=== PATIENT | male | born 1960 | race Caucasian/White ===

== ENCOUNTER 2017-05-05 13:07 | Emergency (ER) | payer OTHER ==
[2017-05-05 13:14] VITALS: BMI 31.8
[2017-05-05 13:15] VITALS: BP 113/73; PULSE 80; RESP 18; TEMP 98; O2SAT 100
--- NOTE | 2017-05-05 13:39 | C.PDOC ---
History Of Present Illness 56 year old male presents to the ER complaining of bilateral foot pain which has been present for 1 year. Patient states that he feels pain mainly in the balls of his feet and he feels that his foot pads are not supporting his feet. 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 He reports that the finger is stiff. Time Seen by Provider: 05/05/17 13:26 Chief Complaint (Nursing): Lower Extremity Problem/Injury History Per: Patient History/Exam Limitations: no limitations Onset/Duration Of Symptoms: Days Current Symptoms Are (Timing): Still Present Past Medical History Reviewed: Historical Data, Nursing Documentation, Vital Signs Vital Signs: Last Vital Signs Temp 98.0 F 05/05/17 13:14 Pulse 80 05/05/17 13:14 Resp 18 05/05/17 13:14 BP 113/73 05/05/17 13:14 Pulse Ox 100 05/05/17 16:07 - Medical History PMH: No Chronic Diseases Surgical History: No Surg Hx Family History: States: No Known Family Hx - Social History Hx Tobacco Use: No Hx Alcohol Use: Yes Hx Substance Use: No - Immunization History Hx Tetanus Toxoid Vaccination: No Hx Influenza Vaccination: No Hx Pneumococcal Vaccination: No Review Of Systems Except As Marked, All Systems Reviewed And Found Negative. Musculoskeletal: Positive for: Hand Pain (pain in right 3rd digit), Foot Pain ( bilateral foot pain) Neurological: Negative for: Weakness, Numbness Physical Exam - Physical Exam Appears: Non-toxic, No Acute Distress Skin: Normal Color, Warm Head: Atraumatic, Normacephalic Eye(s): bilateral: Normal Inspection, EOMI Nose: Normal Oral Mucosa: Moist Neck: Supple Chest: Symmetrical Extremity: Normal ROM, Tenderness (mild tenderness to the right 3rd digit non focal, pain with flexion of digit), Capillary Refill (<2 seconds), No Deformity (right 3rd digit), No Swelling, Other (feet: low arches, hammer toe of left 2nd toe, some calluses on plantar surface of bilateral feet, no ulcers) Pulses: Left Dorsalis Pedis: Normal, Right Dorsalis Pedis: Normal Neurological/Psych: Oriented x3, Normal Speech, Normal Motor, Normal Sensation Gait: Steady ED Course And Treatment O2 Sat by Pulse Oximetry: 100 (RA) Pulse Ox Interpretation: Normal Medical Decision Making Medical Decision Making: Impression: Bilateral Foot Pain, no injury. No concern for fracture or need for xray. Finger pain, no trauma. Plan: Patient given Motrin for pain and advised to wear orthototics and supportive shoes. Patient discharged and advised to follow up with podiatry. Disposition Counseled Patient/Family Regarding: Diagnosis, Need For Followup, Rx Given - Disposition Referrals: [facility] [Outside] Podiatry Clinic [Outside] Disposition: HOME/ ROUTINE Disposition Time: 13:36 Condition: GOOD Additional Instructions: Your prescription was sent to [facility] for Motrin 600mg Take medication for any pain and inflammation every 6-8 hours as needed, and with food to not upset stomach Please follow up with podiatry clinic for further evaluation of foot pain/ problem Prescriptions: Ibuprofen [Motrin] 600 mg PO Q8 #30 tab Instructions: Foot Sprain (ED), Tendinitis (ED) Forms: [employer] (Divehi) - POA Present On Arrival: None - Clinical Impression Clinical Impression: Foot pain, bilateral, Finger pain, Hammer toe of left foot - 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 - Scribe Statement The provider has reviewed the documentation as recorded by the Mark Duncan Provider Attestation All medical record entries made by the Mark were at my direction and personally dictated by me. I have reviewed the chart and agree that the record accurately reflects my personal performance of the history, physical exam, medical decision making, and the department course for this patient. I have also personally directed, reviewed, and agree with the discharge instructions and disposition.
== END 2017-05-05 13:56 | disposition home or self-care (01) ==
LOC: C.ER 13:07
DX: M79.672 Pain in left foot (principal); M79.671 Pain in right foot; M79.644 Pain in right finger(s); M20.42 Other hammer toe(s) (acquired), left foot

== ENCOUNTER 2017-11-27 15:46 | Emergency (ER) | payer OTHER ==
[2017-11-27 15:47] VITALS: BMI 31.8
[2017-11-27 15:56] VITALS: RESP 18; O2SAT 100
[2017-11-27] MEDS ORDERED: Sodium Chloride 0.9% 1,000 ML IV ONE (16:07)
--- NOTE | 2017-11-27 16:20 | C.PDOC ---
History Of Present Illness 57 y/o male presents to the ER complaining of RLQ that has been intermittent for about a week. Pain radiates to the right testicle. Its worse the last few hours prompting ER visit. Aggravated positional changes. The patient denies any fever, dysuria, nausea, vomiting, diarrhea, decreased PO intake, or history of kidney stones. 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 Time Seen by Provider: 11/27/17 15:58 Chief Complaint (Nursing): Abdominal Pain History Per: Patient Onset/Duration Of Symptoms: Days Current Symptoms Are (Timing): Still Present Location Of Pain/Discomfort: RLQ Radiation Of Pain To:: Other (testicles) Quality Of Discomfort: Other ("tight") Associated Symptoms: denies: Nausea, Vomiting, Diarrhea Exacerbating Factors: Other (sitting for extended period of time) Last Bowel Movement: Today Recent travel outside of the [place]: No Past Medical History Reviewed: Historical Data, Nursing Documentation, Vital Signs Vital Signs: Last Vital Signs Temp 98.5 F 11/27/17 19:01 Pulse 70 11/27/17 19:01 Resp 18 11/27/17 19:01 BP 101/65 11/27/17 19:01 Pulse Ox 100 11/27/17 19:02 - Medical History PMH: No Chronic Diseases Surgical History: No Surg Hx Family History: States: Unknown Family Hx - Social History Hx Tobacco Use: No Hx Alcohol Use: Yes Hx Substance Use: No - Immunization History Hx Tetanus Toxoid Vaccination: No Hx Influenza Vaccination: No Hx Pneumococcal Vaccination: No Review Of Systems Except As Marked, All Systems Reviewed And Found Negative. Constitutional: Negative for: Fever Gastrointestinal: Positive for: Abdominal Pain (RLQ pain). Negative for: Nausea , Vomiting, Diarrhea Genitourinary: Positive for: Other (radiating pain to testicular area). Negative for: Dysuria Physical Exam - Physical Exam Appears: Well, Non-toxic, No Acute Distress Skin: Normal Color, Warm, Dry Head: Atraumatic, Normacephalic Eye(s): bilateral: Normal Inspection, EOMI Nose: Normal Oral Mucosa: Moist Neck: Normal ROM, Supple Chest: Symmetrical Cardiovascular: Rhythm Regular Respiratory: Normal Breath Sounds, No Rales, No Rhonchi, No Wheezing Gastrointestinal/Abdominal: Soft, Tenderness (to RLQ), No Distention Back: No CVA Tenderness, No Vertebral Tenderness Male Genital: Testicular Tenderness (mild tenderness to the right testicle. No left testicle palpated. (Pt notes he has never had a L testicle since , never evaluated)), No Testicular Swelling, Inguinal Tenderness (R) Extremity: Bilateral: Atraumatic, Normal Color And Temperature, Normal ROM Neurological/Psych: Oriented x3, Normal Speech, Other (no focal deficits) ED Course And Treatment - Laboratory Results Result Diagrams: 11/27/17 17:07 11/27/17 17:07 O2 Sat by Pulse Oximetry: 100 (RA) Pulse Ox Interpretation: Normal Progress Note: Ordered CMP, Lipase stat, CBC, UA and testicular US. Patient was given Toradol 30 mg IV and IV fluids. On re-evaluation , pain improves. Pt is hungry. Tolerating po. Afebrile. Copy of work up given and instructed f/u with PMD in 1-2 days. Case discussed with Dr Wells, agreed upon plan and discharge. Disposition - Disposition Referrals: Santana Burns [Staff Provider] - Juan Luis Valencia MD [Staff Provider] - Disposition: HOME/ ROUTINE Disposition Time: 19:00 Condition: STABLE Additional Instructions: Follow up with your doctor in 1-2 days. Return to ER if symptoms persist or worsen. Prescriptions: Ciprofloxacin HCl [Cipro] 500 mg PO BID #14 tab Metronidazole [Flagyl] 500 mg PO BID #14 tab Instructions: Diverticulitis (DC) Forms: [employer] (Croatian) - Clinical Impression Clinical Impression: Diverticulitis - PA / DIRECTOR INDEX / Resident 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 - Scribe Statement The provider has reviewed the documentation as recorded by the Scribe (Omayra Ivan) All medical record entries made by the Scribe were at my direction and personally dictated by me. I have reviewed the chart and agree that the record accurately reflects my personal performance of the history, physical exam, medical decision making, and the department course for this patient. I have also personally directed, reviewed, and agree with the discharge instructions and disposition.
[2017-11-27 16:59] LABS: SQUAMOUS EPITHIAL 3 /hpf (0-5); URINE BACTERIA FEW (<OCC); URINE BILIRUBIN NEGATIVE (NEGATIVE); URINE BLOOD NEGATIVE (NEGATIVE); URINE CLARITY Hazy (Clear); URINE COLOR Yellow (YELLOW); URINE GLUCOSE (UA) 2+ mg/dL (Normal); URINE LEUKOCYTE ESTERASE 3+ Leu/uL (Negative); URINE PROTEIN NEGATIVE (NEGATIVE)
[2017-11-27] MEDS ORDERED: Sodium Chloride 0.9% 1,000 ML ONE (17:13)
[2017-11-27 17:15] LABS: BASO # 0.1 K/uL (0.0-0.2); EOS # 0.1 K/uL (0.0-0.7); EOS % 1.5 % (0.0-4.0); HEMOGLOBIN 15.1 g/dL (12.0-18.0); LYMPH # 3.2 K/uL (1.0-4.3); LYMPH % 35.7 % (20.0-40.0); MEAN CELL VOLUME 85.6 fL (80.0-94.0); MEAN CORPUSCULAR HEMOGLOBIN 30.1 pg (27.0-31.0); MEAN CORPUSCULAR HGB CONC 35.2 g/dL (33.0-37.0); MEAN PLATELET VOLUME 8.5 fL (7.2-11.7); MONO # 0.6 K/uL (0.0-0.8); MONO % 6.5 % (0.0-10.0); NEUT % 55.3 % (50.0-75.0); NRBC % 0.1 % (0.0-2.0); RBC 5.02 Mil/uL (4.40-5.90); RED CELL DISTRIBUTION WIDTH 13.1 % (11.5-14.5); WHITE BLOOD COUNT 9.1 K/uL (4.8-10.8)
[2017-11-27 17:43] LABS: ALB/GLOB RATIO 1.5 (1.0-2.1); ALT/SGPT 29 U/L (21-72); AST/SGOT 19 U/L (17-59); BLOOD UREA NITROGEN 16 mg/dL (9-20); CALCIUM 9.3 mg/dl (8.6-10.4); GFR AFRICAN-AMERICAN > 60; GFR NON-AFRICAN AMERICAN > 60; LIPASE 145 U/L (23-300)
[2017-11-27] MEDS ORDERED: Iohexol 300 100 ML IJ ONE (18:16)
--- NOTE | 2017-11-27 18:40 | US ---
Date of service: 11/27/2017 HISTORY: scrotal pain TECHNIQUE: Realtime sonography through the scrotum with color and doppler flow. COMPARISON: None Available. FINDINGS: RIGHT TESTICLE: Measures 4.4 x 2.3 x 4 cm. Normal echotexture and flow. RIGHT EPIDIDYMIS: Epididymal head measures 1.2 x 0.8 x 1 cm. There is a small cyst seen at the epididymal head measures 0.4 x 0.3 x 0.4 centimeter, otherwise unremarkable appearance with normal flow. LEFT TESTICLE: The left testicle was not visualized in the scrotum. There is a small soft tissue structure in the left groin may represent atrophic undescended left testicle LEFT EPIDIDYMIS: Was not visualized. HYDROCELE: None. VARICOCELE: None. OTHER FINDINGS: None. IMPRESSION: No evidence of right testicular torsion. Small right epididymal head cyst. The left testicle is not seen in the scrotum.
--- NOTE | 2017-11-27 18:57 | CT ---
Date of service: 11/27/2017 PROCEDURE: CT Abdomen and Pelvis with contrast HISTORY: RLQ COMPARISON: None. TECHNIQUE: Contrast dose: 100 mL of Omnipaque 300. Axial and reformatted coronal and sagittal CT images of the abdomen and pelvis were obtained after IV contrast administration. Radiation dose: Total exam DLP = 758.77 mGy-cm. This CT exam was performed using one or more of the following dose reduction techniques: Automated exposure control, adjustment of the mA and/or kV according to patient size, and/or use of iterative reconstruction technique. FINDINGS: LOWER THORAX: No evidence of acute pathology. LIVER: Unremarkable. No gross lesion or ductal dilatation. GALLBLADDER AND BILE DUCTS: Unremarkable. PANCREAS: Unremarkable. No gross lesion or ductal dilatation. SPLEEN: Unremarkable. ADRENALS: Unremarkable. No mass. KIDNEYS AND URETERS: There is 1.7 centimeters cyst seen at the upper pole of the left kidney. No hydronephrosis. No solid mass. VASCULATURE: Unremarkable. No aortic aneurysm. BOWEL: The stomach is mildly distended demonstrate mild wall thickening. Descending and sigmoid colon diverticulosis are noted. Mild fat stranding surrounding the sigmoid colon. The possibility of acute diverticulitis should be considered. . No obstruction. No gross mural thickening. APPENDIX: Normal appendix. PERITONEUM: Unremarkable. No free fluid. No free air. LYMPH NODES: Unremarkable. No enlarged lymph nodes. BLADDER: Unremarkable. REPRODUCTIVE: Heterogeneous prostate contains large calcification. BONES: No acute fracture. OTHER FINDINGS: None. IMPRESSION: Colonic diverticulosis. Suspicious for mild diverticulitis at the sigmoid colon. Please correlate clinically. No evidence of appendicitis. Mildly distended stomach demonstrate mild diffuse wall thickening suspicious for gastritis.
[2017-11-27 19:03] VITALS: BP 101/65; PULSE 70; TEMP 98.5
== END 2017-11-27 19:20 | disposition home or self-care (01) ==
LOC: C.ER 15:46
DX: K57.32 Diverticulitis of large intestine without perforation or abscess without bleeding (principal)
CPT/HCPCS: 74177; 76870; 80053; 81001; 83690; 85025; 96361; 96374; 99285; J1885; J7030; Q9967

== ENCOUNTER 2018-01-07 20:30 | Emergency (ER) | payer SELFPAY ==
[2018-01-07 20:30] VITALS: BMI 31.8
[2018-01-07 21:01] VITALS: TEMP 98.2
--- NOTE | 2018-01-07 21:23 | C.PDOC ---
History Of Present Illness 57 y/o male, with Hx of recent diverticulitis, presents to ED for evaluation of RLQ abdominal pain described as pressure since yesterday. Pt states pain feels similar to last time when he was diagnosed with diverticulitis. Last BM was today, normal. Denies fall, trauma, n/v/d, constipation, blood in stool, back pain, fever, urinary symptoms, chest pain, or shortness of breath. Time Seen by Provider: 01/07/18 21:23 Chief Complaint (Nursing): Abdominal Pain History Per: Patient History/Exam Limitations: no limitations Onset/Duration Of Symptoms: Days Current Symptoms Are (Timing): Still Present Location Of Pain/Discomfort: RLQ Radiation Of Pain To:: None Quality Of Discomfort: Pressure Exacerbating Factors: None Alleviating Factors: None Last Bowel Movement: Today Recent travel outside of the [place]: No Additional History Per: Patient Past Medical History Reviewed: Historical Data, Nursing Documentation, Vital Signs Vital Signs: Last Vital Signs Temp 98.2 F 01/07/18 20:58 Pulse 68 01/08/18 00:36 Resp 16 01/08/18 01:07 BP 115/72 01/08/18 00:36 Pulse Ox 98 01/08/18 00:57 - Medical History PMH: Diverticulitis Family History: States: Unknown Family Hx - Social History Hx Tobacco Use: No Hx Alcohol Use: Yes Hx Substance Use: No - Immunization History Hx Tetanus Toxoid Vaccination: No Hx Influenza Vaccination: No Hx Pneumococcal Vaccination: No Review Of Systems Except As Marked, All Systems Reviewed And Found Negative. Constitutional: Negative for: Fever, Chills Cardiovascular: Negative for: Chest Pain Respiratory: Negative for: Shortness of Breath Gastrointestinal: Positive for: Abdominal Pain. Negative for: Nausea, Vomiting , Diarrhea, Constipation, Melena, Hematochezia Genitourinary: Negative for: Dysuria, Frequency, Hematuria, Penile Discharge Musculoskeletal: Negative for: Back Pain Physical Exam - Physical Exam Appears: Non-toxic, No Acute Distress Skin: Normal Color, Warm, Dry Head: Atraumatic, Normacephalic Eye(s): bilateral: Normal Inspection Oral Mucosa: Moist Neck: Normal ROM, Supple Chest: Symmetrical Cardiovascular: Rhythm Regular, No Murmur Respiratory: Normal Breath Sounds, No Rales, No Rhonchi, No Wheezing Gastrointestinal/Abdominal: Soft, Tenderness (RLQ), No Guarding, No Rebound Back: No CVA Tenderness Extremity: Normal ROM Neurological/Psych: Oriented x3, Normal Speech ED Course And Treatment - Laboratory Results Result Diagrams: 01/07/18 21:49 01/07/18 21:49 O2 Sat by Pulse Oximetry: 98 Medical Decision Making Medical Decision Makin yr old male p/w recurrent RLQ pain. Given RLQ pain will seek CT to rule out appdx. Likely recurrent diverticulitis. Plan: Blood work Urinalysis Abd & Pelvis CT 1249 UA w/ UTI: Pt denies any penile d/c or hx of STDs. No testicular pain or deep set abdominal pain. No pain w. defecation or difficuly urinating. Will order UC and have pt f/u w/ uro pain improved, pt resting comfortable in NAD IMPRESSION: Moderate diverticulosis. Thickwalled sigmoid colon without significant inflammatory stranding. Differential diagnosis includes nondistention, chronic inflammation and mild colitis. Clinical correlation recommended. Thank you for allowing us to participate in the care of your patient. Dictated and Authenticated by: Radha Hameed MD 01/08/2018 12:38 AM Eastern Time ([place] & [place]) REcurrent diverticulitis will write rx script and have pt follow up w/ gastro Cipro to cover UTI as well. Disposition - Disposition Referrals: Koby Lozano MD [Medical Doctor] - Tyson Azevedo Jr., MD [Staff Provider] - Disposition: HOME/ ROUTINE Disposition Time: 00:49 Condition: GOOD Prescriptions: Ciprofloxacin [Cipro] 500 mg PO BID 14 Days #28 tab Metronidazole [Flagyl] 500 mg PO TID 14 Days #42 tablet Instructions: Urinary Tract Infections in Adults, Diverticulitis (DC) Forms: [employer] (Tuvaluan) - Clinical Impression Clinical Impression: Diverticulitis - Scribe Statement The provider has reviewed the documentation as recorded by the Scribe KP All medical record entries made by the Scribe were at my direction and personally dictated by me. I have reviewed the chart and agree that the record accurately reflects my personal performance of the history, physical exam, medical decision making, and the department course for this patient. I have also personally directed, reviewed, and agree with the discharge instructions and disposition.
[2018-01-07] MEDS ORDERED: Sodium Chloride 0.9% 1,000 ML IV SCH (21:45)
[2018-01-07 21:54] LABS: BASO # 0.1 K/uL (0.0-0.2); BASO % 0.7 % (0.0-2.0); EOS # 0.1 K/uL (0.0-0.7); EOS % 1.7 % (0.0-4.0); HEMOGLOBIN 15.3 g/dL (12.0-18.0); LYMPH % 34.9 % (20.0-40.0); MEAN CELL VOLUME 85.3 fL (80.0-94.0); MEAN CORPUSCULAR HEMOGLOBIN 29.9 pg (27.0-31.0); MEAN PLATELET VOLUME 8.6 fL (7.2-11.7); MONO # 0.6 K/uL (0.0-0.8); MONO % 7.2 % (0.0-10.0); NEUT # 4.8 K/uL (1.8-7.0); NEUT % 55.5 % (50.0-75.0); RBC 5.12 Mil/uL (4.40-5.90); RED CELL DISTRIBUTION WIDTH 13.2 % (11.5-14.5); WHITE BLOOD COUNT 8.6 K/uL (4.8-10.8)
[2018-01-07 22:08] LABS: ALB/GLOB RATIO 1.5 (1.0-2.1); ALT/SGPT 26 U/L (21-72); AST/SGOT 13 U/L (17-59); BLOOD UREA NITROGEN 14 mg/dL (9-20); CALCIUM 9.6 mg/dl (8.6-10.4); GFR NON-AFRICAN AMERICAN > 60; LIPASE 277 U/L (23-300)
[2018-01-07 22:20] LABS: VENOUS BLOOD GAS PCO2 44 mmHg (40-60); VENOUS BLOOD GAS PO2 63 mm/Hg (30-55)
[2018-01-07 22:24] LABS: SQUAMOUS EPITHIAL 1 /hpf (0-5); URINE BILIRUBIN NEGATIVE (NEGATIVE); URINE BLOOD NEGATIVE (NEGATIVE); URINE CLARITY Clear (Clear); URINE COLOR Yellow (YELLOW); URINE GLUCOSE (UA) 3+ mg/dL (Normal); URINE LEUKOCYTE ESTERASE 1+ Leu/uL (Negative); URINE PROTEIN NEGATIVE (NEGATIVE); URINE UROBILINOGEN NORMAL mg/dL (0.2-1.0)
[2018-01-07] MEDS ORDERED: Iodixanol 320 MG/ML 100 ML BOTTLE IV ONE (23:29)
[2018-01-08 00:37] VITALS: BP 115/72; PULSE 68; RESP 16
[2018-01-08 00:49] VITALS: O2SAT 98
--- NOTE | 2018-01-08 08:52 | CT ---
Date of service: 01/07/2018 PROCEDURE: CT Abdomen and Pelvis without intravenous contrast HISTORY: Abdominal pain COMPARISON: 11/27/2017 TECHNIQUE: Multiple contiguous axial images were performed through the abdomen and pelvis with the use of intravenous contrast. Subsequently, sagittal and coronal reformatted images were obtained. Radiation dose: Total exam DLP = 754 mGy-cm. This CT exam was performed using one or more of the following dose reduction techniques: Automated exposure control, adjustment of the mA and/or kV according to patient size, and/or use of iterative reconstruction technique. FINDINGS: LOWER THORAX: Unremarkable. LIVER: Unremarkable. No gross lesion or ductal dilatation. GALLBLADDER AND BILE DUCTS: Unremarkable. PANCREAS: Unremarkable. No gross lesion or ductal dilatation. SPLEEN: Unremarkable. ADRENALS: Unremarkable. No mass. KIDNEYS AND URETERS: Calcified renal arteries bilaterally. Low-attenuation lesions in the left kidney for example in the upper pole measuring 1.4 centimeters demonstrating a Hounsfield unit attenuation of 8 suggestive for a cyst. Additional more inferior 1.1 centimeter low-attenuation lesion with a Hounsfield unit attenuation 21, possibly representing a cyst although indeterminate by Hounsfield unit attenuation characteristics. Correlation with renal ultrasound may be helpful. VASCULATURE: Atherosclerotic calcification in the aorta. BOWEL: Moderate diverticulosis is present in the sigmoid and descending colon. Sigmoid colon is thick walled which may be secondary to chronic inflammation or mild colitis. Clinical correlation. Post treatment interval followup colonoscopy may be helpful to exclude underlying lesion at this level. APPENDIX: Unremarkable. Normal appendix. PERITONEUM: Unremarkable. No free fluid. No free air. LYMPH NODES: Unremarkable. No enlarged lymph nodes. BLADDER: Unremarkable. REPRODUCTIVE: Unremarkable. BONES: Degenerative changes in the spine. Bridging sclerosis of the left SI joint. Mild anterolisthesis of L5 on S1 with associated bilateral pars defects. OTHER FINDINGS: None. IMPRESSION: Moderate diverticulosis is present in the sigmoid and descending colon. Sigmoid colon is thick walled which may be secondary to chronic inflammation or mild colitis. Clinical correlation. Post treatment interval followup colonoscopy may be helpful to exclude underlying lesion at this level. Additional findings as above. These findings were preliminarily reported at 12:30 a.m. on 01/08/[address] Radha Hameed from [employer].
== END 2018-01-08 01:07 | disposition home or self-care (01) ==
LOC: C.ER 20:30
DX: K57.32 Diverticulitis of large intestine without perforation or abscess without bleeding (principal); N39.0 Urinary tract infection, site not specified
CPT/HCPCS: 74177; 80053; 81001; 82803; 83690; 85025; 87086; 99284; J7030; Q9967